=== PATIENT | female | born 1995 | race Caucasian/White ===

== ENCOUNTER 2016-07-14 11:01 | Inpatient (IN) | payer OTHER ==
[~2016-07-14] VITALS: Ht 162.6 cm; Wt 84.4 kg
[~2016-07-14 11:01] MED LIST: AMOX500T2 PO; IBUP-1827 PO
[2016-07-14] MEDS ORDERED: Methylergonovine 0.2 mg/mL Inj IM PRN (12:40)
[2016-07-14] MEDS ORDERED: Lactated Ringer's 1,000 ML IV PRN (12:40)
[2016-07-14] MEDS ORDERED: Oxytocin 10 Unit/mL Inj IM PRN (12:40)
[2016-07-14] MEDS ORDERED: Oxytocin 30 Units/500 mL LR 30 UNITS in IV Premix 1 EACH IV PRN ×2 (12:40→13:30)
[2016-07-14] MEDS ORDERED: Sodium Chloride LOK Flush 10 mL Syringe IVFLUSH PRN (12:40)
[2016-07-14] MEDS ORDERED: Hemorrhage Kit, Post Partum XX ONE (12:40)
[2016-07-14] MEDS ORDERED: Ondansetron 2 mg/mL 2 mL Inj IVPUSH PRN (12:40)
[2016-07-14] MEDS ORDERED: Carboprost 250 mCg/mL Inj IM PRN (12:40)
[2016-07-14] MEDS: Lactated Ringer's 1,000 ML IV SCH ×2 (12:50→20:14)
[2016-07-14 13:05] LABS: Mean Corpuscular Hemoglobin 25.9 pg (27.0-35.0); Mean Corpuscular Volume 84.2 fL (81-100)
[2016-07-14] MEDS: Misoprostol 25 mCg/0.25 Tablet VAGINAL SCH ×2 (14:08→18:08)
--- NOTE | 2016-07-14 17:48 | PCM.HPOB ---
Subjective Date of Service: Jul 14, 2016 Referring Provider: Admitting Physician: Jason Devi MD Primary Care Physician: Nopcp Attending Physician: Jason Devi MD Chief Complaint Late Entry note: Patient evaluated at 1300. Increased swelling. History of Present History of Present Illness Nubia is a very nice 21 y/o at 38w4d gestation by LMP c/w 11 week ultrasound who presents today because she has noticed increased lower extremity edema. She is concerned because her mother was diagnosed with "toxemia" and is worried she may have this. She denies headache, visual disturbance, RUQ pain, CP , SOB. She denies VB, LOF, ctx. She reports good movement. She reports better control of schizophrenia with increase dosing of olanzapine 10mg daily. She took her dose this am at 6. Obstetrical Complications: Other (One missed ) Past Medical History Gynecologic History: Unremarkable. Denies STDs or hsv history. Medical History: -Schizophrenia currently seeing Dr. Payan. H/o hospitalization. -H/o methamphetamine abuse in remission. Several negative UDS collections at [facility] (7) with first collection 12/19/2015. One positive opiates while on hydrocodone following tooth extraction. -H/o tobacco abuse. Surgical History: Dental surgery Social History: + Tobacco. No current EtOH or illicit drug use. Previous h/o methamphetamine abuse. Good support of family. Past Family History Family History h/o diabetes Genetic Screening/Counseling Genetic Screening/Counseling Declined Review of Systems ROS See HPI. All other systems reviewed and negative. Medications Home medications Olanzapine 10mg daily Allergy Coded Allergies: No Known Allergies (Unverified , 02/07/16) Exam Vital Signs 145/90 (136-162/66-97 - only one BP >/= 160/110) 91 16 36.4 Exam 150 bpm. Moderate variability. Spontaneous accelerations. Random, short variables, rare seen. [place] - none. Constitutional: Well-developed, Well-nourished HEENT: Atraumatic Lungs: Clear to Auscultation, Normal Air Movement Heart: Exam Unremarkable, Regular Rate/Rhythm Abdomen: Gravid, Soft, No tenderness Extremities: Pulses Palpable x4, Edema (1+ bilateral to knees with pitting ) Neurological/Psychiatric: Alert, Oriented X3, Cooperative, No Acute Distress Neuro: Grossly Neurologically Intact, Normal Speech, Normal Gait Additional Information Cervical exam: 1.5/50/-3/posterior/soft/vertex. Labs/Diagnostics Labs Laboratory Tests 72 Hours Test 07/14/16 12:50 07/14/16 13:30 White Blood Count 14.7th/mm3 (3.8-10.1) Red Blood Count 3.48mil/mm3 (3.90-5.20) Hemoglobin 9.0g/dL (12.0-15.6) Hematocrit 29.3% (35.0-46.0) Mean Corpuscular Volume 84.2fL (81-100) Mean Corpuscular Hemoglobin 25.9pg (27.0-35.0) Mean Corpuscular Hemoglobin Concent 30.7% (32.0-37.0) Red Cell Distribution Width 14.0% (12.3-15.4) Platelet Count 327bil/L (150-400) Urine Random Creatinine 13mg/dL (16-392) Urine Random Total Protein 9mg/dL (0-15) Urine Protein/Creatinine Ratio 0.69 Sodium Level 135mEq/L (134-144) Potassium Level 4.3mEq/L (3.5-5.2) Chloride Level 100mEq/L (97-108) Carbon Dioxide Level 21mmol/L (18-29) Blood Urea Nitrogen 12mg/dL (6-20) Creatinine 0.45mg/dL (0.57-1.00) Estimat Glomerular Filtration Rate 252mL/min (>59) Glucose Level 100mg/dL (60-99) Calcium Level 8.7mg/dL (8.5-10.1) Total Bilirubin 0.2mg/dL (0.0-1.2) Aspartate Amino Transf (AST/SGOT) 31U/L (0-50) Alanine Aminotransferase (ALT/SGPT) 21U/L (0-32) Alkaline Phosphatase 366U/L (25-150) Total Protein 6.0g/dL (6.4-8.4) Albumin 3.0g/dL (3.4-5.0) Urine Opiates Screen Negative Urine Methadone Screen Negative Urine Barbiturates Screen Negative Urine Amphetamines Screen Negative Urine Benzodiazepines Screen Negative Urine Cocaine Metabolite Screen Negative Urine Cannabinoids Screen Negative Maternal Blood Type: O (positive) Antibody Screen: Negative Group B Strep Results: Negative Rubella: Immune Additional Information VZV - Immune RPR - NR HBsAg - negative HIV - nonreactive 1hGTT - 91 GC/CT - negative CF - negative Anatomy U/s - WNL OB Intrapartum Assessment/Plan Assessment 21 y/o at 38w4d with preeclampsia without severe features Plan for IOL with cytotec. Anticipate . No need for magnesium at this time. Monitor CBC and CMP Q12h. Monitor BPs closely. If she requires treatment of BP, we will start magnesium for seizure prophylaxis. Consult SW given psych and drug abuse history. Continue olanzapine daily. Jason Devi MD Jul 14, 2016 17:48
[2016-07-14] MEDS: fentaNYL-PF 50 mCg/mL 2 mL Inj IVPUSH PRN ×2 (21:13→23:04)
[2016-07-15] MEDS ORDERED: Lactated Ringer's 1,000 ML IV SCH (00:47)
[2016-07-15] MEDS ORDERED: Methylergonovine 0.2 mg/mL Inj IM PRN (00:50)
[2016-07-15] MEDS ORDERED: Oxytocin 10 Unit/mL Inj IM PRN (00:50)
[2016-07-15] MEDS ORDERED: Benzocaine (Dermoplast) 20% 60 Gm Spray TOPICAL PRN (00:50)
[2016-07-15] MEDS ORDERED: LANOlin HPA 7 Gm Ointment TOPICAL PRN (00:50)
[2016-07-15] MEDS ORDERED: Carboprost 250 mCg/mL Inj IM PRN (00:50)
[2016-07-15] MEDS ORDERED: Witch Hazel-Glycerin Pads TOPICAL PRN (00:50)
[2016-07-15] MEDS ORDERED: Hemorrhage Kit, Post Partum XX ONE (00:50)
--- NOTE | 2016-07-15 01:05 | PCM.OBVAG ---
Vaginal Delivery Date of Service Jul 15, 2016 Pre Operative Diagnosis Pre Operative Diagnosis 1. Pre-eclampsia 2. 38.5 week 3. schizophrenia Post Operative Diagnosis Post Operative Diagnosis Same Procedure Obstetical Procedure: Normal Spontaneous Vaginal Delivery, Repair of Perineal Tear (1st degree) Registered Phlebotomist Part Time/Hot Worker Provider and Hot Worker: Alonso Schmidt DO Indication for Procedure Indication for Procedure Pre-eclampsia Induction: Active labor, Induction of labor, SROM Findings Obstetrical Findings: (Male), Cord (3 Vessel, nuchal cord x1 - loose) , Weight ( 2388 grams), Weight (5 lbs 4 oz), Presentation (KAITLYN), 1 minute (8), 5 minutes (9), Placenta (Intact/Normal), Perineal Laceration (1st degree) Analgesia/Medications Procedural Analgesia: Lidocaine 1% 20ccs Obstetrical Anesthesia: Local Procedure Details Procedure Details I was called to the room at 2345 by nursing to deliver pt as Dr Devi was performing a in another room. Noted pt is primip being induced at term for pre-eclampsia. Light mec noted after spontaneous SROM, occuring minutes before and Dr. Ireland present at time of delivery. Pt without epidural with excellent pushing. Vigorous male born at 2353. Uterus firm and well contracted, pitocin bolus given. Cord blood collected. Placenta delivered without complication Bilat labial lacerations present with 1st degree perineal laceration repaired with local anesthetic and 3/0 vicryl without complication. Pt tolerated procedure well. Specimen none Blood Loss & Administration Estimated Blood Loss: 250 Blood Admin during procedure: No Post Procedure Plan Post delivery Condition: Mom stable, Baby stable to nursery Timmy Schmidt DO Jul 15, 2016 01:05
[2016-07-15] MEDS: HYDROcodone-APAP 5-325 mg Tablet PO PRN (02:38)
[2016-07-15 07:28] LABS: BASOPHILS % (AUTO) 0.1 % (0-3); EOSINOPHILS % (AUTO) 0.2 % (0-5); MONOCYTES % (AUTO) 7.1 % (4-12); Mean Corpuscular Hemoglobin 25.9 pg (27.0-35.0); Mean Corpuscular Volume 84.4 fL (81-100); NEUTROPHILS % (AUTO) 80.1 % (40-74); Platelet Count 282 bil/L (150-400)
--- NOTE | 2016-07-16 07:25 | PCM.PNOBPP ---
Subjective Date of Service Jul 16, 2016 Post : Spontaneous Vaginal Delivery Visit History 21 y/o now P1 on day #1 from [facility] at 38w4d and repair 1st degree perineal laceration. complicated by preeclampsia, schizophrenia with auditory hallucinations and history of poor compliance with medications and follow up as well as a history of methamphetamine use, not during . Several negative UDS collections at [facility] (7) with first collection 12/19/2015. One positive for opiates while on hydrocodone following tooth extraction. Subjective Patient is doing well. Pain somewhat relieved with Ibuprofen but she is requesting a Vicodin this morning. She has requested that her not know that she is taking Vicodin, stating he doesn't think she needs it and he is worried because of her history of methamphetamine abuse. She is ambulating and voiding without difficulty. Lochia normal. Breast and bottle feeding are going well. Pain Management: PO pain meds Gastrointestinal: No N/V Postop Activity: Ambulating Independently Labs Maternal Blood Type: O (positive) Antibody Screen Negative Group B Strep Negative Rubella: Immune VZV - Immune RPR - NR HBsAg - negative HIV - nonreactive 1hGTT - 91 GC/CT - negative CF - negative Anatomy U/s - WNL Group B Strep Results: Negative Rubella: Immune Blood Type: O (positive) Labs Laboratory Tests 07/15/16 07:10: White Blood Count 17.5, Red Blood Count 2.94, Hemoglobin 7.6, Hematocrit 24.8, Mean Corpuscular Volume 84.4, Mean Corpuscular Hemoglobin 25.9, Mean Corpuscular Hemoglobin Concent 30.6, Red Cell Distribution Width 14.1, Platelet Count 282, Neutrophils (%) (Auto) 80.1, Lymphocytes (%) (Auto) 12.0, Monocytes ( %) (Auto) 7.1, Eosinophils (%) (Auto) 0.2, Basophils (%) (Auto) 0.1 Exam Vital Signs Vital Signs 36.7, BP 129/62, HR 117, RR 18 Vital Signs: VS reviewed, stable Exam Abdomen: Abdomen soft, Abdomen appropriately tender : Voiding without difficulty Extremities: No tenderness/swelling Lungs: Clear to Auscultation Heart: Regular Rate/Rhythm General: Alert, Oriented X3 OB Post Assessment/Plan Assessment 21 y/o now P1 on day #1 after with first degree perineal tear. Delivered at 38w4d with preeclampsia without severe features Problems: (1) (normal spontaneous vaginal delivery) Plan: -Patient >24hrs from . Had anticipated discharge today but this is delayed at this point due to patient's history of: schizophrenia, poor compliance with psych medications & follow up- out of concern for infant safety. -She was previously followed by her PCP (Dr. Payan). She reports being referred to mental health counseling, has no appt arranged and is without a prescribing provider for her Olanzapine. She endorses taking her Olanzapine, recently, from leftover pills she had around the house. During this she has endorsed hearing voices that tell her to strangle her . She admitted during an office visit to periods when she would not take her medication. -Social work consulted, who alerted CPS. Discussed case with SW and consult placed to Psychiatry to better asses whether she may require further monitoring as an inpatient, input regarding follow up and management of anti-psychotic medication. Ultimate goal: assess if safe for infant to be discharged with the patient, arrange for close follow up. -Ibuprofen 800mg q6h, prn for pain -F[facility] Status: Acute ICD Code: O80 (2) Preeclampsia Plan: -BP 129/62, continue to monitor this AM Status: Acute ICD Code: O14.90 (3) 39 weeks gestation of Plan: -s/p , continue routine management. Status: Acute ICD Code: Z3A.39 Pain Evaluation: Adequate Pain Control Post plan: Continue routine post care Attending Statement The patient was seen and examined together with Lady Schroeder DO on 2016 and I agree with the history, exam and plan as outlined in the note above. Lady Schroeder DO Jul 16, 2016 07:25 Leona Hart MD Aug 01, 2016 13:27
[2016-07-16] MEDS: HYDROcodone-APAP 5-325 mg Tablet PO PRN (07:42)
--- NOTE | 2016-07-16 13:52 | NUR ---
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 Current living situation: LUCA and MARTINA will live with maternal grandmother and her fiance, after switching plans from previous planning to live with maternal grandfather. Previous children: This is LUCA and MARTINA's first child Substance abuse history: LUCA reports methamphetamine use since age 9 and received inpatient treatment ~August-September of 2015. LUCA reports that her job and FOB have helped maintain her sobriety. LUCA denies current use and UDS is negative. Mental health history: LUCA reports being diagnosed in [place] with Schizophrenia. LUCA is current prescribed Olanzapine, however her compliance is questionable as LABEL REWINDER notes from care show multiple visits in which she was referred to outpatient providers and asked to increase her dosages but did not attempt to obtain outpatient care and was sporadic in her medication compliance. MARTINA reports that this did not occur because they are quite busy. LUCA has requested that her PCP Dr. Payan follow her psychiatrically, however has not seen Dr. Payan since 01/2016. LUCA reported on 07/04 command hallucinations to strangle her and declined transfer to the ED for mental health evaluation. Pt denies suicidal thoughts presently but reports previous thoughts of suicide and attempts by sitting in the middle of the road. Pt denies current auditory or visual hallucinations but reports she has heard faint voices within the last 2-3 days. LUCA is open to meeting with psychiatry and following up on an outpatient basis. Source of income/state assistance: Nico are employed at [employer] and a [employer], respectively. LUCA is also enrolled with [employer]. No additional services available. DV/abuse history: LUCA denies current or previous DV and reports she is safe in her current home. Supports: LUCA and MARTINA appears to support each other well. Maternal grandmother is present during evaluation and is quite supportive and protective of MOB. LUCA and MARTINA reports ample additional family to include paternal grandparents, siblings and social support from friends at work. Assessment/disposition: SHEET METAL WORK FURNACE INSTALLER requested to consult for a new LUCA who has a history of schizophrenia and questionable compliance with outpatient treatment who reported homicidal command hallucinations on 07/04. MOB reports no current worrying symptoms and would like to follow up at discharge, however due to history of non-compliance and high risk Psychiatry has been asked to meet with MOB prior to discharge to consider a bridging prescription until MOB can follow up with outpatient psychiatry. SHEET METAL WORK FURNACE INSTALLER also due to mental health history and previous drug use within the last year have contacted Haley Ann at [facility] and a case has been opened with intake # [id number]. SHEET METAL WORK FURNACE INSTALLER spoke with Dr. Hart and Dr. Rosales and it is agreed not to discharge MOB and Baby until input is received from psychiatry and CPS. SHEET METAL WORK FURNACE INSTALLER will provide MOB with outpatient psychiatric options that accept her [facility] insurance. [facility] [place] Addendum: 07/16/16 at 1353 by EMI PEREZ Amended: Links added.
[2016-07-16] MEDS ORDERED: OLAN10TA3 PO (14:02)
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
--- NOTE | 2016-07-16 16:35 | PCM.DC.OB ---
Obstetrical Discharge Summary Date of Service Jul 16, 2016 Date of hospital admission Jul 14, 2016 at 12:59 Date of Discharge: Jul 16, 2016 Providers Admitting Physician: Jason Devi MD Primary Care Physician: Eduardo Attending Physician: Jason Devi MD Problems: (1) (normal spontaneous vaginal delivery) Plan: -Ibuprofen prn for pain -Follow up in 2wks at [facility] Status: Acute ICD Code: O80 (2) Preeclampsia Status: Acute ICD Code: O14.90 (3) 39 weeks gestation of Plan: -s/p without complications. Status: Acute ICD Code: Z3A.39 (4) History of schizophrenia Plan: -Due to pt's hx of Schizophrenia, on Olanzapine. Currently without a consistent prescriber and poor follow up with psychiatry. -Patient >24hrs from . Anticipated discharge today but this was delayed due to patient's history of: schizophrenia, poor compliance with psych medications & follow up- out of concern for infant safety. -Previously followed by her PCP, Dr. Payan. Pt states she was given a list of mental health counselors. She has yet to follow up. -During this she has endorsed hearing voices that tell her to strangle her . She admitted during an office visit to periods when she would not take her medication. -Pt endorses taking Olanzapine, had leftover medication at home. States she has been taking it recently. -Social work consulted, who alerted CPS. -Discussed case with SW and consult placed to Psychiatry to better asses whether she may require further monitoring as an inpatient, input regarding follow up and management of anti-psychotic medication. Ultimate goal: assess if safe for to be discharged with the patient, arrange for close follow up. Status: Acute ICD Code: Z86.59 Brief History and Physical: 21 y/o now P1 on day #1 from . complicated by schizophrenia, history of methamphetamine abuse and preeclampsia without severe symptoms. Recovering appropriately. Exam: Vital signs: 36.7, 129/62, 117, 18. General: Well-developed, Well-nourished Lungs: Clear to Auscultation Heart: Regular Rate/Rhythm Abdomen: Soft, appropriately tender, fundus firm Extremities: Trace edema Neuro: Alert, Oriented X3, Cooperative, grossly Neurologically Intact Psych: Mood and affect appear normal, communicating appropriately . Hospital Course: 21 y/o at 38w4d gestation by LMP c/w 11 week ultrasound who presented for lower extremity edema and concern for "toxemia" because this is what her mother was diagnosed with. She denied headache, visual disturbance, RUQ pain, CP , SOB. She denied VB, LOF, ctx. She reported good movement. She reported better control of schizophrenia with increase dosing of olanzapine 10mg daily, endorses taking her dose the morning of admission. SROM at 23:45 with light mec noted and Clinical Staff Pharmacist was notified and present at time of delivery. Labor progressed and she was complete ~23:39 with male delivered via at 23 :53 followed by the placenta at 23:57. She was noted to have bilateral labial lacerations and a first perineal laceration was repaired with 3-0 vicryl. Male: Weight- 2388 grams, Weight (5 lbs 4 oz), Presentation ( KA[place]LYN), 1 minute (8), 5 minutes (9), Placenta (Intact/Normal), Perineal Laceration (1st degree) Amoxicillin (Amoxicillin) 500 Mg Tablet 500 MG PO TID Prescribed by: AKIKO BELTRAN MD Ibuprofen (Ibuprofen) 600 Mg Tablet 600 MG PO TID PRN PRN For Pain Prescribed by: AKIKO BELTRAN MD Olanzapine (Zyprexa) 10 Mg Tablet 10 MG PO DAILY Prescribed by: DAVID WASHINGTON, DO Discharge Medications: Colace 100 mg BID PO PRN for constipation #60-100 Ferrous sulfate 325 mg PO daily, #90 Vitamin C 500 mg PO daily, #90. Take with iron Ibuprofen 800mg, take 1 tab q8h PO PRN for pain Follow-up plan Follow up at [facility] in 2 weeks. Recommend close follow up with PCP and Mental Health counselor, within one week. Discharge Diet: No restrictions Discharge Activity-General: Pelvic Rest for 6 weeks, Balance rest and activity Patient instructions Continue your vitamin. Please take the iron and vitamin C together for your anemia. Iron can give you constipation so you have also been given a prescription for docusate to keep you regular. Be sure to follow up in 2 weeks and then again in 6 weeks at [facility]. Pelvic rest for 6 weeks (nothing per vagina including intercourse, tampons) If you have a fever greater than 100.4, please call [facility]. There is always someone certified lactation counselor to talk to. If you have an increase in bleeding, call [facility]. If you have a lot of bleeding suddenly, especially if you have symptoms of dizziness & weakness with it, get emergency help. When you see [facility] in two weeks, you will be informed of the results of all the labs. If you start experiencing extreme depression, especially if you feel that you are a danger to yourself or your family, seek emergency help. You have been through a lot -- BE SURE TO TAKE CARE OF YOURSELF. Lady Schroeder DO Jul 16, 2016 10:32
--- NOTE | 2016-07-16 16:37 | PCM.DIOB ---
Obstetrical Disch Instruction Date of Service: Jul 16, 2016 Dates of Hospitalization Date of Hospital Admission Jul 14, 2016 at 12:59 Providers Admitting Physician: Jason Devi MD Primary Care Physician: Eduardo Attending Physician: Jason Devi MD Discharge Diagnosis Problems: (1) (normal spontaneous vaginal delivery) Plan: -Ibuprofen 800mg q6h, prn for pain -F/U at [facility] in 6wks Status: Acute ICD Code: O80 (2) Preeclampsia Status: Acute ICD Code: O14.90 (3) 39 weeks gestation of Status: Acute ICD Code: Z3A.39 Diet Discharge Diet: No restrictions Activity Discharge Activity-General: Pelvic Rest for 6 weeks, Balance rest and activity Additional Instructions Discharge Instructions Continue your vitamin. Please take the iron and vitamin C together for your anemia. Iron can give you constipation so you have also been given a prescription for docusate to keep you regular. Be sure to follow up in 2 weeks and then again in 6 weeks at [facility]. Pelvic rest for 6 weeks (nothing per vagina including intercourse, tampons) If you have a fever greater than 100.4, please call [facility]. There is always someone terra cotta mason to talk to. If you have an increase in bleeding, call [facility]. If you have a lot of bleeding suddenly, especially if you have symptoms of dizziness & weakness with it, get emergency help. When you see [facility] in two weeks, you will be informed of the results of all the labs. If you start experiencing extreme depression, especially if you feel that you are a danger to yourself or your family, seek emergency help. You have been through a lot -- BE SURE TO TAKE CARE OF YOURSELF. Be sure to follow up with your primary care physician and mental health counselor. Additional Instructions Be sure to follow up with mental health counselor, as discussed with the Psychiatrist. Preferably within one week. Follow Up Plan Follow Up Plan Follow up at [facility] in 2weeks. Close follow up with Psychiatry and PCP. Follow-up Provider (F9): [facility] Call your provider for: Fever or Chills, Shortness of breath, Heavy vaginal bleeding, Epigastric pain, Excessive constipation Lady Schroeder DO Jul 16, 2016 11:27
[2016-07-16] MEDS ORDERED: IBUP-1827 PO (16:40)
[2016-07-16] MEDS ORDERED: DOCU-41 PO (16:40)
[2016-07-16] MEDS ORDERED: FERR-74 PO (16:40)
[2016-07-16] MEDS ORDERED: ASCO-294 PO (16:40)
[2016-07-16 17:34] VITALS: BP 140/78; PULSE 123; RESP 16
== END 2016-07-16 18:50 | disposition home or self-care (01) | DRG 774 ==
LOC: FBCO 11:01 → FBC 12:59
PROVIDERS: ADMIT Obstetrics & Gynecology; ATTEND Obstetrics & Gynecology
PROC: 10E0XZZ Delivery of Products of Conception, External Approach (ICD-10-PCS; principal; 2016-07-15)
PROC: 0UQMXZZ Repair Vulva, External Approach (ICD-10-PCS; 2016-07-15)
PROC: 0HQ9XZZ Repair Perineum Skin, External Approach (ICD-10-PCS; 2016-07-15)
DX: O14.03 Mild to moderate pre-eclampsia, third trimester (principal); Z3A.38 38 weeks gestation of pregnancy; O99.343 Other mental disorders complicating pregnancy, third trimester; O77.0 Labor and delivery complicated by meconium in amniotic fluid; Z37.0 Single live birth; O70.0 First degree perineal laceration during delivery; F43.12 Post-traumatic stress disorder, chronic; F29 Unspecified psychosis not due to a substance or known physiological condition; F20.9 Schizophrenia, unspecified; O71.82 Other specified trauma to perineum and vulva

== ENCOUNTER 2016-11-02 20:56 | Emergency (ER) | payer OTHER ==
[~2016-11-02] VITALS: Ht 162.6 cm; Wt 63.6 kg
[~2016-11-02 20:56] MED LIST changes: +ASCO-294 PO; +DOCU-41 PO; +FERR-74 PO; +OLAN10TA3 PO
[2016-11-02 21:28] VITALS: BP 132/83; PULSE 110; RESP 18; O2SAT 99
--- NOTE | 2016-11-02 22:33 | ED.REPORT ---
HPI-Extremity Problem Lower Date of Service Nov 02, 2016 ED Provider: Andrea Lopez DO Patient is a 21 year old female who presents to the ED complaining of right foot pain. The patient reports that she caught her foot in between to dresser drawers and is unable to bear weight or walk on the foot. Nursing Notes Stated Complaint: RT FOOT PAIN Chief Complaint: Extremity Trauma Nursing Notes Reviewed: Yes Allergies: Coded Allergies: No Known Allergies (Unverified , 11/02/16) Scheduled Amoxicillin (Amoxicillin) 500 Mg Tablet 500 MG PO TID Ascorbate Calcium (Vitamin C) 500 Mg Tablet 500 MG PO DAILY Ferrous Sulfate (Feosol) 325 Mg Tablet 325 MG PO DAILY Olanzapine (Zyprexa) 10 Mg Tablet 10 MG PO DAILY Scheduled PRN Docusate Sodium (Colace) 100 Mg Capsule 100 MG PO BID PRN PRN For Constipation Ibuprofen (Ibuprofen) 600 Mg Tablet 600 MG PO TID PRN PRN For Pain Ibuprofen (Ibuprofen) 600 Mg Tablet 600 MG PO Q6H PRN PRN For Mild Pain General Time Seen by MD: 22:33 Chief Complaint Foot injury right Hx Obtained From: Patient Arrived By: Walk-in Onset Occurred: Just prior to arrival Symptom Duration: Since onset Location: : Foot right Quality: Painful Severity: Current: Moderate Recent Healthcare: Recent doctor visit, Recent hospitalization Similar Sx Previous: No Past Medical History Past Medical History Healthy Past Surgical History Denies Family History noncontributory Smoking History Current Every Day Smoker Social History Alcohol Use: Denies alcohol use Drug Use: Meth Other Social History: Good social support, Local resident Ambulatory Status Independent Review of Systems Constitutional: Denies: Chills, Fever Musculoskeletal: Reports: Extremity pain (right foot), Extremity swelling Neurologic: Reports: Problem walking, Weakness, Denies: Numbness Complete sys rev & neg: except as marked. Respiratory: Denies: Non-productive cough, Shortness of breath, Wheezing Female: Denies: Physical Exam Initial Vital Signs Vital Signs (First) Date Time Temp Pulse Resp B/P Pulse Ox O2 Delivery O2 Flow Rate FiO2 11/02/16 21:28 36.4 110 18 132/83 99 Room Air Initial VS: Reviewed Lower Extremity / Pelvis / MS: Atraumatic, Inspection NL FOOT: right dorsal and mid foot tenderness no gross deformity achilles intact General/Constitutional: Awake, Alert Respiratory / Chest: Atraumatic, No respiratory distress Skin: Atraumatic, Color NL, No rash, Warm, Dry Neurologic: Oriented X3, Speech NL, No motor deficits, No sensory deficits Head / Eyes: Atraumatic, Normocephalic, PERRL, EOMI Psychiatric: Affect NL, Mood NL Interpretation & Diagnostics X-Ray Interpretation Xray Interpretation: IMPRESSION: 1. No fracture or dislocation. Dictated by: Ronn Francisco M.D. on 11/02/2016 at 23:00 Approved by: Ronn Francisco M.D. on 11/02/2016 at 23:00 X-Ray Ordered: Foot right Interpretation / Wet Read by: Interpret - Radiologist Re-Eval/Medical Decision Med Decision/Clinical Course No fracture visualized. I will immobilize her and have her use crutches. Repeat x-rays in a week if pain persists. Referral for outpatient follow-up given. Re-Evaluation/Progress : Time of Eval: 23:19 Re-Evaluation/Progress Note: Discussed results and plan for discharge. The patient understands and agrees to the plan. All questions were addressed. Counseled Regarding: Diagnosis, Lab results, Need for follow-up, When/why to return to ED Discharge & Departure Impression: Primary Impression: Foot contusion Encounter type: initial encounter Laterality: right Qualified Code: S90.31XA - Contusion of right foot, initial encounter Disposition: Home Discharge Condition All VS Reviewed: Yes Condition: Stable Patient Instructions: Crutch Instructions (ED) Additional Instructions: It did not look like there was a fracture on the X-ray. Wear the boot and use the crutches to help keep weight off your foot. You can take 1-2 [place] every 6 hours for pain. Do not drink alcohol or drive. Do not combine the pain medication with Acetaminophen. Follow up with your primary care physician in - if your symptoms have not improved. Please return to the emergency department if you develop any new or concerning symptoms. Referrals: [facility] Scribe Attestation Portions of this note were transcribed by Fátima Cam. I, Dr. Lopez personally performed the history, physical exam and medical decision-making; I reviewed and confirmed the accuracy of the information in the transcribed note. Signed by: Fátima Amaya, 11/02/16 and 9751 copies to: [facility] Andrea Lopez DO Nov 02, 2016 22:33 Jennifer Cam Nov 02, 2016 22:55
[2016-11-02] MEDS ORDERED: HYDROcodone-APAP 5-325 mg Tablet PO ONE (22:55)
[2016-11-02] MEDS ORDERED: _HYDROcodone/APAP 5-325 mg Tablet PO PRN (22:55)
--- NOTE | 2016-11-02 23:02 | DRSVH ---
PROCEDURE: X-RAY RIGHT FOOT COMPLETE, MINIMUM THREE VIEWS ([id number]) INDICATIONS: injury TECHNIQUE: 2 views of the foot were acquired. COMPARISON: None. FINDINGS: Bones: No fractures or dislocations. No suspicious bony lesions. Soft tissues: No tibiotalar joint effusion. Achilles tendon appears normal. IMPRESSION: 1. No fracture or dislocation. Dictated by: Ronn Francisco M.D. on 11/02/2016 at 23:00 Approved by: Ronn Francisco M.D. on 11/02/2016 at 23:00
== END 2016-11-02 23:39 | disposition home or self-care (01) ==
LOC: SED 20:56
DX: S90.31XA Contusion of right foot, initial encounter (principal); W22.8XXA Striking against or struck by other objects, initial encounter; Y93.89 Activity, other specified; Y92.89 Other specified places as the place of occurrence of the external cause; Y99.8 Other external cause status; F17.200 Nicotine dependence, unspecified, uncomplicated

== ENCOUNTER 2016-11-05 08:33 | Observation (INO) | payer OTHER ==
[~2016-11-05] VITALS: Ht 165.1 cm; Wt 63.6 kg
[2016-11-05 08:40] VITALS: BP 144/88; PULSE 121; RESP 18; O2SAT 99
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
[2016-11-05 09:56] LABS: BASOPHILS % (AUTO) 0.2 % (0-3); EOSINOPHILS % (AUTO) 0.4 % (0-5); Mean Corpuscular Hemoglobin 25.3 pg (27.0-35.0); Mean Corpuscular Volume 78.8 fL (81-100); NEUTROPHILS % (AUTO) 53.5 % (40-74); Platelet Count 368 bil/L (150-400)
[2016-11-05 11:21] VITALS: BP 130/63; PULSE 104; RESP 15; O2SAT 100
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
[2016-11-05] MEDS: Potassium Chloride 20 mEq SR Tablet PO SCH ×2 (11:35→14:56)
[2016-11-05 11:38] LABS: Magnesium 2.1 mg/dL (1.6-2.6); Phosphorus 4.1 mg/dL (2.5-4.9)
[2016-11-05] MEDS ORDERED: 0.9% Sodium Chloride 1,000 ML IV ONE (11:45)
[2016-11-05] MEDS ORDERED: Alum-Mag Hydrox-Simeth 30 mL Suspension PO PRN (12:10)
[2016-11-05] MEDS ORDERED: Ondansetron 2 mg/mL 2 mL Inj IVPUSH PRN (12:10)
[2016-11-05] MEDS ORDERED: Polyethylene Glycol (PEG) 17 Gm Powder PO PRN (12:10)
[2016-11-05 13:00] VITALS: BP 126/61; PULSE 94; RESP 17; O2SAT 99
[2016-11-05] MEDS ORDERED: Lidocaine 2% 5 mL Topical Jelly TOPICAL ONE (13:15)
[2016-11-05 13:47] LABS: APPEARANCE,URINE HAZY (CLEAR,HAZY); COLOR,URINE YELLOW (YELLOW); OCCULT BLOOD,URINE MODERATE (NEGATIVE)
[2016-11-05 13:53] LABS: UROBILINOGEN,URINE 0.2 mg/dL (NORMAL)
--- NOTE | 2016-11-05 13:55 | NUR ---
Policy Went over chemical dependency policy with pt and pts parents. Explained the locking up personal belongings; visitors from 7am-7pm only; no overnight visitors. Pt states that her , son, parents and inlaws would be the only ones visiting her; explained all visitors need to check in at the front. Explained that windows would need to be pulled up, curtain open, and lights on. Pt aware that she is not to leave the unit. Pts mom did ask about bringing in a stuffed animal which I did okay as long as we can see it first. She also asked about the diaper bag that her son would need when visiting. I stated that we would need to check it before it went in the room. All questions answered regarded policy at this time. Primary nurse in training Rachel Cintron RN at bedside for this discussion. Care conts
[2016-11-05] MEDS: 0.9% Sodium Chloride 1,000 ML IV SCH (14:57)
[2016-11-05 14:58] VITALS: BP 126/76; PULSE 103; RESP 17; O2SAT 100
[2016-11-05 17:01] LABS: Magnesium 2.1 mg/dL (1.6-2.6)
[2016-11-05] MEDS ORDERED: LORazepam 0.5 mg Tablet PO PRN (17:45)
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
[2016-11-05 19:40] VITALS: BP 128/77; PULSE 100; RESP 16; O2SAT 99
[2016-11-05 23:34] VITALS: BP 112/70; PULSE 83; RESP 18; O2SAT 99
[2016-11-06] MEDS: 0.9% Sodium Chloride 1,000 ML IV SCH ×2 (01:26→08:06)
[2016-11-06 04:39] VITALS: BP 104/68; PULSE 95; RESP 16; O2SAT 100
--- NOTE | 2016-11-06 05:24 | NUR ---
Sitter Patient had 1:1 sitter throughout the shift. Patient sleeping nearly the whole shift. Mother spent the night in room. Patient calm and compliant with care. Dressing was put on patient's left hand near thumb where skin was blistering Adaptic and Kerlix. Vitals stable. Care continues.
[2016-11-06 13:57] VITALS: BP 122/80; PULSE 83; RESP 16; O2SAT 99
--- NOTE | 2016-11-06 16:01 | DRSVH ---
PROCEDURE: CT BRAIN WITHOUT CONTRAST ([id number]) INDICATIONS: altered mentation TECHNIQUE: Noncontrast 4.5 mm thick angled axial sections acquired from the foramen magnum to the vertex, with c oronal reformats. COMPARISON: None. FINDINGS: Image quality: Excellent. CSF spaces: Basal cisterns are patent. No extra-axial fluid collections. Ventricles are normal in size and shape. Brain: No midline shift. No intracranial masses or hemorrhage. Manriquez-white matter interface is norm al. Skull and face: Calvarium and visualized facial bones are intact, without suspicious lesions. Sinuses: Visualized sinuses and mastoids are clear. IMPRESSION: Negative head CT. No acute intracranial hemorrhage. Dictated by: Anatoliy Davalos M.D. on 11/06/2016 at 15:58 Approved by: Anatoliy Davalos M.D. on 11/06/2016 at 15:59
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
--- NOTE | 2016-11-06 17:48 | NUR ---
Zyprexa Zyprexa 10 mg given around 1100 this morning. Pt usually takes this dose at home. Noticed it makes her quite groggy, rounded and noticed the same thing. Recommended changing dose to be administered at night. Have not seen that change made yet. Will pass along this suggestion to next shift.
[2016-11-06 20:17] VITALS: BP 122/75; PULSE 97; RESP 16; O2SAT 96
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
[2016-11-07 03:10] LABS: Hepatitis A Antibody IgM Negative (Negative); Hepatitis B Core Antibody IgM Negative (Negative)
--- NOTE | 2016-11-07 03:57 | NUR ---
Pain The patient's Zyprexa has been changed to an evening dose. Patient complained of a tooth ache. Dr diaz and Ibuprofen given to, reduce patient's pain. Patient resting in bed most of shift.
[2016-11-07 06:33] VITALS: BP 119/76; PULSE 90; RESP 16; O2SAT 98
--- NOTE | 2016-11-07 10:46 | NUR ---
Social Work: Screening/Discharge D: EMR reviewed. Pt is a 21 y/o female admitted for hypokalemia/psychosis per H&P. Pt's insurance is [employer] and [employer]. Pt received psychiatric evaluation 11/06 recommending that pt schedule outpt appointment with a [facility]. Pt has an appointment with Tenisha at [facility] on 11/12/2016 at 0830. Per ED SW notes, pt's family is involved with pt and her 3-month old child. CPS is involved - CPS worker is Erika Parrish [phone]. Family describes CPS as being helpful with getting pt to come to the hospital and get help. The patient/family sees CPS as an advocate. Pt is open with [facility] - Therapist is Tenisha Chan [phone]. SW called and left a message for Tenisha that pt is at the hospital and is being admitted for medical issues. KO has dx of F32.3 - Major Depressive Disorder. SW placed T/C and left voicemail with pt's father (listed as NOK) Pacnho Castellon ([phone]) regarding discharge planning. SUSAN placed T/C to CPS worker Erika Francois [phone] who confirmed that pt will not be returning home with child. Erika states that pt has signed a Protective Action Plan which dictates that the pt's child will return home with the paternal grandmother and grandfather. The plan also states the the pt will not be allowed to be with the child unsupervised. SUSAN requested Erika fax the Protective Action Plan to the hospital. CPS stated that pt signed a LIAT and requested pt's psych evaluation. SUSAN confirmed LIAT A: Pt who is independent at baseline and presenting psychosis. P: Pt will return home with father today via POV. Pt's 3-month old child will return home with paternal grandmother and paternal grandfather. SUSAN will continue to follow for needs. ARELI Alvarez
[2016-11-07 11:20] VITALS: BP 133/84; PULSE 97; RESP 17; O2SAT 99
[2016-11-07] MEDS ORDERED: OLAN5TAB PO (12:36)
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
--- NOTE | 2016-11-07 14:50 | NUR ---
Discharge Pt discharged to home with father at 1440. A&Ox3, SHI, Stable, Minimal pain to left wisdom tooth - tolerable, IV dc'd intact, All personal belongings in hand at discharge, Hard copy script provided to pt - offered to fax to pt pharmacy. This RN attempted to find information re: and Zyprexa - no definitive results of effect towards baby. Per hospitalist, pt stated she would not be while taking Zyprexa and pt also stated to this RN that she would not be baby. CareNotes and instructions provided on dc medication and dc dx. Instructed on s/sx to watch for re: Hypokalemia. No questions/concerns at time of dc. Pt walked off unit to vehicle with father.
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
== END 2016-11-07 14:40 | disposition home or self-care (01) ==
LOC: SED 09:05 → OSC 12:06
PROVIDERS: ADMIT Family Medicine; ATTEND Family Medicine
DX: E87.6 Hypokalemia (principal); E86.0 Dehydration; F15.10 Other stimulant abuse, uncomplicated; F20.89 Other schizophrenia; F41.9 Anxiety disorder, unspecified; R44.0 Auditory hallucinations; R45.851 Suicidal ideations; S00.81XA Abrasion of other part of head, initial encounter; S60.512A Abrasion of left hand, initial encounter; V47.0XXA Car driver injured in collision with fixed or stationary object in nontraffic accident, initial encounter; Y93.I9 Activity, other involving external motion; Y99.8 Other external cause status; F17.200 Nicotine dependence, unspecified, uncomplicated; F32.9 Major depressive disorder, single episode, unspecified; Y92.481 Parking lot as the place of occurrence of the external cause; R45.4 Irritability and anger; F99 Mental disorder, not otherwise specified
CPT/HCPCS: 36415; 70450; 71010; 80048; 80053; 80164; 81000; 81025; 82075; 83735; 84100; 84132; 84703; 85025; 86705; 86709; 87086; 87088; 87340; 87341; 90791; 93005; 99285; G0378; G0472; G0481; J7030